=== PATIENT | female | born 1965 | race Caucasian/White ===

== ENCOUNTER 2018-02-02 23:33 | Emergency (ER) | payer OTHER ==
[~2018-02-02] VITALS: Ht 170.2 cm; Wt 63.5 kg
[2018-02-02] MEDS ORDERED: IBUPROFEN 600600 M1 PO (23:51)
== END 2018-02-03 00:25 | disposition home or self-care (01) ==
LOC: ER 23:33
DX: I96 Gangrene, not elsewhere classified (principal); Z88.0 Allergy status to penicillin; X31.XXXD Exposure to excessive natural cold, subsequent encounter

== ENCOUNTER 2018-02-27 13:59 | Emergency (ER) | payer OTHER ==
[~2018-02-27] VITALS: Ht 170.2 cm; Wt 63.5 kg
[~2018-02-27 13:59] MED LIST: IBUPROFEN 600600 M1 PO
[2018-02-27 14:44] VITALS: BP 141/71
== END 2018-02-27 15:00 | disposition home or self-care (01) ==
LOC: ER 13:59
DX: S91.101A Unspecified open wound of right great toe without damage to nail, initial encounter (principal); S91.104A Unspecified open wound of right lesser toe(s) without damage to nail, initial encounter; Z88.0 Allergy status to penicillin; Z87.891 Personal history of nicotine dependence; X31.XXXA Exposure to excessive natural cold, initial encounter; Y93.89 Activity, other specified; Y92.89 Other specified places as the place of occurrence of the external cause; Y99.8 Other external cause status

== ENCOUNTER 2018-05-21 10:33 | Emergency (ER) | payer OTHER ==
[~2018-05-21] VITALS: Ht 170.2 cm; Wt 63.5 kg
[2018-05-21] MEDS ORDERED: NEURONTIN 300300 M1 PO (11:18)
[2018-05-21 11:43] VITALS: BP 186/87
== END 2018-05-21 11:39 | disposition home or self-care (01) ==
LOC: ER 10:33
DX: M79.671 Pain in right foot (principal); M79.672 Pain in left foot; Z59.0 Homelessness; Z87.891 Personal history of nicotine dependence; Z88.0 Allergy status to penicillin